=== PATIENT | female | born 1965 | race Caucasian/White ===

== ENCOUNTER 2023-11-14 10:21 | Emergency (ER) | payer MEDICAID ==
[~2023-11-14] VITALS: Ht 167.6 cm; Wt 67.5 kg
[~2023-11-14 10:21] MED LIST: DIPH-423 PO
[2023-11-14] MEDS ORDERED: CLIN-97 PO (11:28)
[2023-11-14 11:46] VITALS: BP 122/70; PULSE 88; RESP 18; TEMP 97.9; O2SAT 99
== END 2023-11-14 11:47 | disposition home or self-care (01) ==
LOC: ER 10:21
DX: K08.89 Other specified disorders of teeth and supporting structures (principal); F17.290 Nicotine dependence, other tobacco product, uncomplicated; Z88.0 Allergy status to penicillin; Z79.2 Long term (current) use of antibiotics; Z79.899 Other long term (current) drug therapy; Z59.00 Homelessness unspecified
CPT/HCPCS: 99283

== ENCOUNTER 2023-12-27 09:50 | Emergency (ER) | payer MEDICAID ==
[~2023-12-27] VITALS: Ht 157.5 cm; Wt 59.9 kg
[~2023-12-27 09:50] MED LIST changes: +CLIN-97 PO
[2023-12-27 09:54] VITALS: BP 134/80; PULSE 112; RESP 16; TEMP 97; O2SAT 98
== END 2023-12-27 10:56 | disposition left against medical advice (07) ==
LOC: ER 09:50
DX: R20.0 Anesthesia of skin (principal); Z53.21 Procedure and treatment not carried out due to patient leaving prior to being seen by health care provider; Z88.0 Allergy status to penicillin